=== PATIENT | female | born 1990 | race Asian ===

== ENCOUNTER 2017-07-17 01:23 | Emergency (ER) | payer MEDICAID ==
[~2017-07-17] VITALS: Ht 154.9 cm; Wt 54.5 kg
[2017-07-17 01:40] LABS: GLUCOSE,POINT OF CARE 91 MG/DL (70-110)
[2017-07-17 02:10] LABS: BASOPHILS # (AUTO) 0.04 K/uL (0.00-0.20); BASOPHILS % (AUTO) 0.6 % (0.0-2.0); EOSINOPHILS # (AUTO) 0.01 K/uL (0.00-0.70); EOSINOPHILS % (AUTO) 0.16 % (1.0-6.0); HEMATOCRIT 46.1 % (36-46); HEMOGLOBIN 14.8 g/dL (12.0-16.0); LYMPHOCYTES # (AUTO) 1.8 K/uL (1.0-4.8); LYMPHOCYTES % (AUTO) 25.9 % (22.0-44.0); MEAN CORPUSCULAR HEMOGLOBIN 26.9 pg (26.0-34.0); MEAN CORPUSCULAR HGB CONC 32.2 G/dL (31.0-37.0); MEAN CORPUSCULAR VOLUME 84 fL (80-100); MONOCYTES # (AUTO) 0.2 K/uL (0.1-1.0); MONOCYTES % (AUTO) 3.4 % (2.0-9.0); NEUTROPHILS % (AUTO) 69.9 % (40.0-70.0); PLATELET COUNT (AUTO) 205 K/uL (150-450); RED BLOOD CELL COUNT(AUTO) 5.52 MIL/uL (4.00-5.20); WHITE BLOOD COUNT (AUTO) 7.1 K/uL (4.5-11.0)
[2017-07-17 02:18] LABS: ANION GAP 8 mmol/L (8-16); CALCIUM, TOTAL 9.4 mg/dL (8.8-10.5); CARBON DIOXIDE 26 mmol/L (22-29); CHLORIDE 102 mmol/L (98-107); CREATININE 0.95 mg/dL (0.60-1.30); GLOMERULAR FILTR. RATE CALC > 60 mL/min (>60); POTASSIUM 3.9 mmol/L (3.5-5.1); SODIUM SERUM 136 mmol/L (136-145); UREA NITROGEN, BLOOD 10 mg/dL (7-18)
[2017-07-17 02:24] LABS: ALANINE AMINOTRANSFERASE 26 U/L (12-78); ALBUMIN 4.8 g/dL (3.4-5.0); ASPARTATE AMINOTRANSFERASE 27 U/L (15-37); BILIRUBIN,TOTAL 0.2 mg/dL (0.1-1.0); TOTAL PROTEIN, SERUM 9.3 g/dL (6.4-8.2)
[2017-07-17 04:30] VITALS: BP 118/69
[2017-07-17] MEDS ORDERED: ONDANSETRON HCL 4 MG TABLET PO ONE (04:45)
== END 2017-07-17 05:11 | disposition home or self-care (01) ==
LOC: EMS 01:25
DX: F10.129 Alcohol abuse with intoxication, unspecified (principal); Y90.6 Blood alcohol level of 120-199 mg/100 ml
CPT/HCPCS: 36415; 51702; 80053; 80307; 82962; 84703; 85025; 99284; G0480; Q0162